=== PATIENT | female | born 1990 | race Caucasian/White ===

== ENCOUNTER 2018-10-23 08:57 | Day surgery (SDC) | payer OTHER ==
[2018-10-19 16:15] VITALS: BMI 32.5
[~2018-10-23 08:57] MED LIST: BUPIVACAINE HCL/PF 0.25% (2.5MG/ML) 10 ML VIAL IJ ONE; GELATIN SPONGE,ABSORBABLE 1 GM PACKET TP ONE; LIDOCAINE 1%/EPI 1:100000 (50 ML MULTI DOSE VIAL) INF ONE; THROMBIN (BOVINE) 5,000 UNIT VIAL TP ONE
[2018-10-23] MEDS ORDERED: oxyCODONE HCL 10 MG SUSTAINED ACTING TABLET PO ONE (09:06)
[2018-10-23] MEDS ORDERED: DEXAMETHASONE SOD PHOSPHATE/PF 10 MG/ML SDV ONE (09:58)
[2018-10-23] MEDS ORDERED: BUPIVACAINE HCL/PF (5 MG/ML) 30 ML VIAL IJ ONE (09:59)
[2018-10-23] MEDS ORDERED: MIDAZOLAM HCL 2 MG/2 ML SINGLE DOSE VIAL ONE (09:59)
[2018-10-23] MEDS ORDERED: SUCCINYLCHOLINE CHLORIDE 200 MG/10 ML VIAL ONE (10:34)
[2018-10-23] MEDS ORDERED: PROPOFOL 20 ML ONE (10:34)
[2018-10-23] MEDS ORDERED: ONDANSETRON 4 MG/2 ML VIAL ONE (10:48)
[2018-10-23] MEDS ORDERED: ceFAZolin SODIUM 1 GM VIAL ONE (10:48)
[2018-10-23] MEDS ORDERED: DEXAMETHASONE SOD PHOSPHATE 4 MG/1 ML VIAL ONE (10:48)
[2018-10-23] MEDS ORDERED: LIDOCAINE 1%/EPI 1:100000 (50 ML MULTI DOSE VIAL) INF ONE (10:55)
[2018-10-23] MEDS ORDERED: THROMBIN (BOVINE) 5,000 UNIT VIAL TP ONE (11:20)
[2018-10-23] MEDS ORDERED: GELATIN SPONGE,ABSORBABLE 1 GM PACKET TP ONE (11:21)
[2018-10-23] MEDS ORDERED: methylPREDNISolone ACET (DEPO) 40 MG/1 ML VIAL IM ONE (11:38)
[2018-10-23] MEDS ORDERED: BUPIVACAINE HCL/PF 0.25% (2.5MG/ML) 10 ML VIAL IJ ONE (11:42)
[2018-10-23] MEDS ORDERED: oxyCODONE HCL 5 MG TABLET PO PRN (11:44)
[2018-10-23] MEDS ORDERED: ONDANSETRON 4 MG/2 ML VIAL IVPUSH PRN (11:44)
[2018-10-23] MEDS ORDERED: LACTATED RINGERS SOLUTION 1,000 ML IV SCH (11:45)
--- NOTE | 2018-10-23 13:17 | OP ---
Operative Note - Note: Operative Date: 10/23/18 Pre-Operative Diagnosis: spinal stenosis Operation: laminectomy of L4-L5 with microdiscectomy Surgeon: Michael Reddy Crawler Tractor Operator: Julianna Lindquist Anesthesiologist/OPERATIONS PROGRAM MANAGER: Jo Toribio Anesthesia: Spinal Specimens Removed: L4-L5 disc Estimated Blood Loss (mls): 20 Fluid Volume Replaced (mls): 900 Operative Report Dictated: Yes
--- NOTE | 2018-10-23 13:19 | SURG ---
Surgery Assistant Professor Of Surgery Note Assistant Professor Of Surgery: Julianna Lindquist PA-C Date of Service: 10/23/18 Diagnosis: spinal stenosis L4-L5 Procedure: laminectomy of L4-L5 with microdiscetomy I was present for the entirety of the operative procedure. For further detail, please refer to operative report. Visit type - Case Type Case Type: Scheduled - Emergency Emergency Visit: No - New patient This patient is new to me today: Yes Date on this admission: 10/23/18
[2018-10-23 13:36] VITALS: TEMP 98.1
[2018-10-23 16:02] VITALS: BP 129/76; PULSE 106
--- NOTE | 2018-10-26 10:55 | PATH ---
Surgical Pathology Report Patient Name: VELASQUEZ LY Med. Rec. #: [id number] /Age/Gender: 1990 (Age: 28) / F Account: [id number] Location: [facility] Taken: 10/23/2018 Received: 10/23/2018 Reported: 10/26/2018 Physicians: Michael Reddy M.D. Specimen(s) Received L4-5 DISC Clinical History Spinal stenosis Final Diagnosis L4-5 DISC, LAMINECTOMY: CARTILAGE WITH DEGENERATIVE CHANGES. Electronically Signed Corrie Carlos M.D. Gross Description Received in formalin labeled "L4-5 disc," is a 2.5 x 1.8 x 0.3 cm aggregate of mata fragments of fibrocartilaginous tissue. A denial management representative portion is submitted in one cassette. 10/24/201810/24/2018
--- NOTE | 2018-10-27 07:38 | OP ---
DATE OF OPERATION: 10/23/2018 PREOPERATIVE DIAGNOSIS: Spinal stenosis. POSTOPERATIVE DIAGNOSIS: Spinal stenosis. PROCEDURE PERFORMED: Laminectomy at L4-L5. SURGEON: Michael Reddy MD TRAFFIC SIGNAL TECHNICIAN: [place] ESTIMATED BLOOD LOSS: 50 mL. INTRAVENOUS FLUIDS: Per Anesthesia. ANESTHESIA: Spinal/erector spinae block. COMPLICATIONS: None. DISPOSITION: The patient was brought to the PACU in stable condition. INDICATIONS FOR SURGERY: The patient is a 28-year-old female who has been suffering from pain from her back down her legs. X-rays and MRI were completed, which noted that she had spinal stenosis at L4-L5. She had gone through an exhaustive course of treatment for this, which included medications, physical therapy as well as injections. Unfortunately, her pain continued to persist in spite all of this. At this point, the risks, benefits and alternatives were discussed, and the patient was consented to surgery. DESCRIPTION OF PROCEDURE: The patient was brought to the operating room by the Anesthesia staff. After appropriate patient identification was performed, spinal anesthesia was given. The patient was positioned prone onto the OR table, with all areas of bony prominences well-padded at this time. Two needles were placed into the back to sorin off the L4-L5 segment, and x-rays taken to confirm the site. The needle was removed and 10 mL of lidocaine with epinephrine was injected into her back at this time. Her back was prepped and draped in sterile manner. At this point, a time-out was completed. An incision was made from the top of L4 down to the bottom of L5. Dissection was carried down to the fascia. The fascia was then split open at this time and appropriate retractors were placed in. A spinal needle was placed onto the L4 lamina to sorin off the L4-L5 level, and x-rays taken to confirm that. The needle was removed. The microscope was brought in. The interspinous ligament at L4-L5 was removed. Portions of the L4 and L5 spinous process were removed. Portions of the lamina were removed. The flavum was identified and was removed. The thecal sac was mobilized medially. A disk herniation was noted. By the end of the procedure, the L5 nerve root appeared to be well decompressed. All bleeding was well controlled at this time. Steroid was placed over the nerve root. FloSeal was placed over that. The fascia was closed with number 1 Vicryl suture. The subcutaneous tissue was closed with 2-0 Vicryl suture. The skin was closed with 3-0 Monocryl suture. Dermabond was applied. Steri-Strips were applied. A sterile dressing was applied. The patient was placed supine on the OR bed, and brought to the PACU in stable condition. Cindy [id number]
== END 2018-10-23 15:00 | disposition home or self-care (01) ==
LOC: FASU 08:57
PROVIDERS: ATTEND Orthopaedic Surgery Orthopaedic Surgery of the Spine
PROC: 0ST20ZZ Resection of Lumbar Vertebral Disc, Open Approach (ICD-10-PCS; principal; 2018-10-23 08:30)
DX: M48.061 Spinal stenosis, lumbar region without neurogenic claudication (principal)
CPT/HCPCS: 84703; 88304-TC; 94760